=== PATIENT | female | born 1950 | race Two or more races ===

== ENCOUNTER 2017-06-14 14:00 | Emergency (ER) | payer BC ==
[~2017-06-14] VITALS: Ht 180.3 cm; Wt 117.0 kg
[2017-06-14 14:23] VITALS: BP 184/66
--- NOTE | 2017-06-14 14:59 | Emergency Room Report ---
History of Present Illness General Chief Complaint: Lower Extremity Injury Source: Patient, EMS Present Illness HPI This patient is brought in by EMS. She has a history of a right prosthetic hip with recurrent dislocations. The patient states that she had a hip replacement 19 years ago. She states that over the past 5 years she has had 6 hip dislocations. She is being followed by an orthopedic surgeon who is planning on doing a revision of the prosthetic. She presents today after dislocating her hip while trying to stand up from the toilet. She states that she was at a friend's house and after using the restroom, she realized that there was nothing to grab onto to help while herself up. She states that she grabbed the edge of the shower door and as she pulled up she felt her right hip dislocate. She did not fall. She had no other trauma or injuries. She states that the last time her hip dislocated it was in her orthopedic surgeon's office and he was able to reduce it there in office. She does have pain in the right hip. She has no other complaints. Allergies: Uncoded Allergies: CATS (Allergy, Unknown, Shortness of Breath, 06/14/17) Patient History Past Medical History: see triage record, DM, HTN, CAD, arrhyth - A.flutter, asthma, other - Thyroid, THERESE Past Surgical History: other - Thyroidectomy, Bilateral hip replacement, Bilateral knee replacement Social History: Denies: smoking, alcohol use, drug use Reviewed Nursing Documentation: PMH: Agreed; PSxH: Agreed Nursing Documentation-PMH Hx Cardiac Problems: Yes - afib Hx Diabetes: Yes Review of Systems All Other Systems: negative except mentioned in HPI Physical Exam Vital Signs Date Time Temp Pulse Resp B/P (MAP) Pulse Ox O2 Delivery O2 Flow Rate FiO2 06/14/17 13:51 98.1 74 18 184/66 98 98.1 Sp02 EP Interpretation: reviewed, normal General Appearance: no apparent distress, alert, GCS 15, non-toxic Head: normocephalic, atraumatic Eyes: bilateral eye normal inspection, bilateral eye PERRL ENT: hearing grossly normal, normal pharynx, no angioedema, normal voice Neck: full range of motion, supple/symm/no masses Respiratory: chest non-tender, lungs clear, normal breath sounds, no respiratory distress, no retraction, no accessory muscle use, speaking full sentences Cardiovascular #1: regular rate, rhythm, no edema Gastrointestinal: normal bowel sounds, non tender, soft, non-distended, no guarding, no rebound Rectal: deferred Musculoskeletal: back normal, other - R. Hip unable to ROM secondary to pain. Neurologic: alert, oriented x3, responsive, motor strength/tone normal, sensory intact, speech normal Psychiatric: judgement/insight normal, memory normal, mood/affect normal, no suicidal/homicidal ideation Skin: normal color, no rash, warm/dry, well hydrated Procedures Joint Reduction Joint Reduction : Consent: Verbal Joint Reduction Site: hip (R) Procedural Sedation: Yes Reduction Attempts: One Pre-Procedure NV Exam: Yes Post-Procedure NV Exam: Yes Post Joint Reduction Film: joint reduced Patient Tolerated: Well Complications: None Progress The patient was sedated using moderate sedation. See sedation note. The patient was difficult to sedate and was tolerant to sedative medications. Initially she was given 1 mg of Versed and fentanyl. She was not sedated or pain control. She was given 4 mg of Versed total in 0.5 mg increments. She continued with for sedation. She was then given 20 mg increments of propofol until sedation was achieved. The hip was reduced with traction and internal rotation. The patient remained stable with normal vital signs and oxygenation during the procedure. Neurovascularly intact after the procedure. Patient ambulated without difficulty. Medical Decision Making Diagnostic Impression: Primary Impression: Dislocation of hip joint prosthesis ER Course This patient presented with a prosthetic posterior hip dislocation. The hip was reduced under moderate sedation with 1 attempt. See my procedure note. The patient was able to ambulate after the procedure with resolution of her symptoms. She will be following up with her own orthopedic surgeon with plans to have a revision of the prosthetic hip. The patient was given close return precautions and follow up instructions. Laboratory Tests Test 06/14/17 15:16 White Blood Count 10.2 K/UL (4.8-10.8) Red Blood Count 4.27 M/UL (4.20-5.40) Hemoglobin 13.6 G/DL (12.0-16.0) Hematocrit 39.7 % (37.0-47.0) Mean Corpuscular Volume 93 FL (80-99) Mean Corpuscular Hemoglobin 31.9 PG (27.0-31.0) H Mean Corpuscular Hemoglobin Concent 34.3 G/DL (32.0-36.0) Red Cell Distribution Width 11.8 % (11.6-14.8) Platelet Count 213 K/UL (150-450) Mean Platelet Volume 7.9 FL (6.5-10.1) Neutrophils (%) (Auto) 67.7 % (45.0-75.0) Lymphocytes (%) (Auto) 22.2 % (20.0-45.0) Monocytes (%) (Auto) 7.7 % (1.0-10.0) Eosinophils (%) (Auto) 1.3 % (0.0-3.0) Basophils (%) (Auto) 1.1 % (0.0-2.0) Prothrombin Time 12.3 SEC (9.30-11.50) H Prothrombin Time INR 1.2 (0.9-1.1) H PTT 33 SEC (23-33) Sodium Level 142 MMOL/L (136-145) Potassium Level 4.1 MMOL/L (3.5-5.1) Chloride Level 103 MMOL/L (98-107) Carbon Dioxide Level 23 MMOL/L (21-32) Anion Gap 16 mmol/L (5-15) H Blood Urea Nitrogen 11 mg/dL (7-18) Creatinine 0.8 MG/DL (0.55-1.30) Estimate Glomerular Filtration Rate > 60 mL/min (>60) Glucose Level 96 MG/DL (74-106) Calcium Level 9.6 MG/DL (8.5-10.1) Total Bilirubin 0.4 MG/DL (0.2-1.0) Aspartate Amino Transferase (AST) 31 U/L (15-37) Alanine Aminotransferase (ALT) 28 U/L (12-78) Alkaline Phosphatase 53 U/L (46-116) Total Protein 7.5 G/DL (6.4-8.2) Albumin 3.8 G/DL (3.4-5.0) Globulin 3.7 g/dL Albumin/Globulin Ratio 1.0 (1.0-2.7) Other X-Ray Diagnostic Results Other X-Ray Diagnostic Results : X-Ray ordered: R. Hip x2 # of Views/Limited Vs Complete: 1 View, Complete Indication: Pain EP Interpretation: Yes Interpretation: other - R. hip prosthesis dislocated. Repeat R. hip xray: Reduced. Impression: Other Electronically Signed by: Shilo Last Vital Signs Date Time Temp Pulse Resp B/P (MAP) Pulse Ox O2 Delivery O2 Flow Rate FiO2 06/14/17 13:51 98.1 74 18 184/66 98 98.1 Status: improved Disposition: HOME, SELF-CARE Condition: Improved FRANCESCA NOBLE D.O. Jun 14, 2017 14:59
[2017-06-14] MEDS ORDERED: Morphine Sulfate 4mg/ml Inj IVP ONE (15:30)
--- NOTE | 2017-06-14 15:50 | Diagnostic Imaging Report ---
Indication: Trauma, status post fall, pain Technique: One view the right hip Comparison: none Findings: Evaluation is limited given the of the availability of only a single view. There is a right hip arthroplasty prosthesis. It is dislocated. No gross fracture Impression: Dislocated right hip arthroplasty
[2017-06-14 15:59] LABS: ANION GAP 16 mmol/L (5-15); BLOOD UREA NITROGEN 11 mg/dL (7-18); CALCIUM 9.6 MG/DL (8.5-10.1); CARBON DIOXIDE 23 MMOL/L (21-32); CHLORIDE 103 MMOL/L (98-107); CREATININE 0.8 MG/DL (0.55-1.30); POTASSIUM 4.1 MMOL/L (3.5-5.1); SODIUM 142 MMOL/L (136-145)
[2017-06-14 16:01] LABS: BASOPHILS % (AUTO) 1.1 % (0.0-2.0); EOSINOPHILS % (AUTO) 1.3 % (0.0-3.0); HEMATOCRIT 39.7 % (37.0-47.0); HEMOGLOBIN 13.6 G/DL (12.0-16.0); LYMPHOCYTES % (AUTO) 22.2 % (20.0-45.0); MEAN CORPUSCULAR VOLUME 93 FL (80-99); MONOCYTES % (AUTO) 7.7 % (1.0-10.0); NEUTROPHILS % (AUTO) 67.7 % (45.0-75.0); PLATELET COUNT 213 K/UL (150-450); RED BLOOD COUNT 4.27 M/UL (4.20-5.40); RED CELL DISTRIBUTION WIDTH 11.8 % (11.6-14.8); WHITE BLOOD COUNT 10.2 K/UL (4.8-10.8)
[2017-06-14 16:02] LABS: INR 1.2 (0.9-1.1)
[2017-06-14 16:04] LABS: ALANINE AMINOTRANSFERASE 28 U/L (12-78); ALBUMIN 3.8 G/DL (3.4-5.0); ALKALINE PHOSPHATASE 53 U/L (46-116); ASPARTATE AMINO TRANSFERASE 31 U/L (15-37); BILIRUBIN,TOTAL 0.4 MG/DL (0.2-1.0)
[2017-06-14] MEDS ORDERED: fentaNYL 100 mcg/2 mL IV ONE ×2 (16:30→18:00)
[2017-06-14] MEDS ORDERED: Midazolam 2mg/2ml Inj IVP ONE ×3 (16:30→18:00)
[2017-06-14 16:51] VITALS: BP 148/72
[2017-06-14 17:15] VITALS: BP 172/63
[2017-06-14] MEDS ORDERED: Midazolam 2mg/2ml Inj ONE (17:32)
[2017-06-14] MEDS ORDERED: Propofol 200mg/20ml IV ONE ×2 (18:00→18:04)
[2017-06-14 20:32] VITALS: BP 172/63
--- NOTE | 2017-06-15 08:30 | Diagnostic Imaging Report ---
Indication: Right hip dislocation, status post reduction Technique: 2 views of the right hip Comparison: 4 hours earlier Findings: Interim reduction of previously demonstrated dislocated right hip arthroplasty prosthesis. No underlying bony abnormality Impression: Successful reduction of previously dislocated right hip prosthesis
== END 2017-06-14 21:10 | disposition home or self-care (01) ==
LOC: EDBD 14:00 → EMR 15:31
DX: T84.020D Dislocation of internal right hip prosthesis, subsequent encounter (principal); I48.91 Unspecified atrial fibrillation; E11.9 Type 2 diabetes mellitus without complications
CPT/HCPCS: 27266; 36415; 73501; 73502; 80053; 85025; 85610; 85730; 96374; 96375; 99284; J2250; J2270; J2405; J2704; J3010; 99283